=== PATIENT | male | born 1990 | race Caucasian/White ===

== ENCOUNTER 2016-08-29 14:30 | Emergency (ER) | payer OTHER ==
[2016-08-29] MEDS ORDERED: Ketorolac 60 MG/2 ML SDV IM ONE (14:57)
--- NOTE | 2016-08-29 15:33 | EDM.PDOC ---
ED HPI LOWER BACK PAIN/INJURY - General Chief Complaint: Back Pain or Injury Stated Complaint: BACK PAIN Time Seen by Provider: 08/29/16 15:17 Source of Information: Reports: Patient History Limitations: Reports: No limitations - History of Present Illness INITIAL COMMENTS - FREE TEXT/NARRATIVE: History of present illness: [25-year-old male comes in complaining of lower back pain. Patient indicates pain started a few days ago and has gotten progressively worse to the point that he had a stabbing pain in the small of his back last night that caused him to almost passed out. Patient is pacing in the room unable to stay still and subsequently seeming to be in chronic mild distress.] Review of systems: As per history of present illness and below otherwise all systems reviewed and negative. Past medical history: As per history of present illness and as reviewed below otherwise noncontributory. Surgical history: As per history of present illness and as reviewed below otherwise noncontributory. Social history: No reported history of drug or alcohol abuse. Family history: As per history of present illness and as reviewed below otherwise noncontributory. Physical exam: HEENT: Atraumatic, normocephalic, pupils reactive, negative for conjunctival pallor or scleral icterus, mucous membranes moist, throat clear, neck supple, nontender, trachea midline. Lungs: Clear to auscultation, breath sounds equal bilaterally, chest nontender. Heart: S1S2, regular, negative for clicks, rubs, or JVD. Abdomen: Soft, nondistended, nontender. Negative for masses or hepatosplenomegaly. Negative for costovertebral tenderness. Pelvis: Stable nontender. Genitourinary: Deferred. Rectal: Deferred. Extremities: Atraumatic, negative for cords or calf pain. Neurovascular unremarkable. Neuro: Awake, alert, oriented. Cranial nerves II through XII unremarkable. Cerebellum unremarkable. Motor and sensory unremarkable throughout. Exam nonfocal. Patient denies loss of bladder or bowel control is able to ambulate elevate with a guarded gait but is able to clear all the way in a cautious stilted manner Radiographics studies negative for obvious fracture or malalignment. This has been discussed with the patient in regards to a potentially being a soft tissue problem that would not appear on x-ray and needs to be followed up outside with her primary care provider who can manage referrals. Diagnostics: [X-ray of lumbar spine] Therapeutics: [Toradol 60 mg IM] Impression: [Lumbar sacral pain with radiculopathy] Plan: [Lobe with PCP as already the scheduled] Definitive disposition and diagnosis as appropriate pending reevaluation and review of above. - Related Data Allergies/ADRs: Allergies Allergy/AdvReac Type Severity Reaction Status Date / Time No Known Allergies Allergy Verified 03/02/16 11:42 Home Meds: Home Meds Multivitamin with Minerals [Multiple Vitamin] 1 tab PO DAILY 11/17/15 [History] Past Medical History - Past Health History Medical/Surgical History: Denies Medical/Surgical History Respiratory History: Reports: Asthma Other Respiratory History: Asthma as a child, no symptoms as an adult Gastrointestinal History: Reports: Other (see below) Other Gastrointestinal History: History of stomach/bowel problems since a young child, have had 2 prior dual scopes, currently some heartburn, diarrhea and at times constipation, hx: blood in stools - Infectious Disease History Infectious Disease History: Reports: Chicken pox - Past Surgical History HEENT Surgical History: Reports: Adenoidectomy, Tonsillectomy GI Surgical History: Reports: Appendectomy, Colonoscopy, EGD Social & Family History - Family History Family Medical History: Noncontributory - Tobacco Use Smoking Status *Q: Never Smoker Years of Tobacco use: 8 Packs/Tins Daily: 0.3 - Caffeine Use Caffeine Use: Reports: Coffee, Energy drinks - Recreational Drug Use Recreational Drug Use: No Drug Use in Last 12 Months: No ED ROS GENERAL - Review of Systems Review Of Systems: See Below (See history of present illness) ED EXAM,LOWER BACK PAIN/INJURY - Physical Exam Exam: See Below (See history of present illness) Course - Vital Signs Last Recorded V/S: Last Vital Signs Temp 36.6 C 08/29/16 14:42 Pulse 70 08/29/16 14:42 Resp 18 08/29/16 14:42 BP 142/88 H 08/29/16 14:42 Pulse Ox 99 08/29/16 14:42 - Orders/Labs/Meds Orders: Active Orders 24 hr Category Date Time Status Lumbar Spine 2 or 3V [CR] Stat Exams 08/29/16 14:57 Ordered Meds: Medications Discontinued Medications Generic Name Dose Route Start Last Admin Trade Name Freq PRN Reason Stop Dose Admin Ketorolac Tromethamine 60 mg 08/29/16 14:57 Toradol IM 08/29/16 14:58 ONETIME ONE Departure - Departure Time of Disposition: 15:51 Disposition: Home, Self-Care 01 Condition: good Clinical Impression: Back pain Qualifiers: Back pain location: low back pain Chronicity: acute Back pain laterality: midline Sciatica presence: with sciatica Sciatica laterality: sciatica of left side Qualified Code(s): M54.42 - Lumbago with sciatica, left side Instructions: Back Pain, Adult, [id number] Forms: ED Department Discharge Additional Instructions: The following information is given to patients seen in the emergency department who are being discharged to home. This information is to outline your options for follow-up care. We provide all patients seen in our emergency department with a follow-up referral. The need for follow-up, as well as the timing and circumstances, are variable depending upon the specifics of your emergency department visit. If you don't have a primary care physician on staff, we will provide you with a referral. We always advise you to contact your personal physician following an emergency department visit to inform them of the circumstance of the visit and for follow-up with them and/or the need for any referrals to a consulting specialist. The emergency department will also refer you to a specialist when appropriate. This referral assures that you have the opportunity for follow-up care with a specialist. All of these measure are taken in an effort to provide you with optimal care, which includes your follow-up. Under all circumstances we always encourage you to contact your private physician who remains a resource for coordinating your care. When calling for follow-up care, please make the office aware that this follow-up is from your recent emergency room visit. If for any reason you are refused follow-up, please contact the Emergency Department at and asked to speak to the emergency department charge nurse. Followup primary care provider in one to 2 days please followup with the appointment at your he has scheduled You have been provided prescriptions for a muscle relaxer as well as a pain medicine please take sparingly and only as needed Return to the ED as needed as discussed - My Orders Last 24 Hours: My Active Orders 08/29/16 14:57 Lumbar Spine 2 or 3V [CR] Stat - Assessment/Plan Last 24 Hours: My Active Orders 08/29/16 14:57 Lumbar Spine 2 or 3V [CR] Stat
[2016-08-29 16:15] VITALS: BP 142/71
--- NOTE | 2016-08-30 17:10 | CR ---
EXAM DATE: 08/29/16 PATIENT'S AGE: 25 Patient: REGINO RAMIREZ Facility: [place], [place] Site . Site : 1990 Study: XRay Spine Lumbar [id number] 3:09:57 PM Ordering Physician: Doctor Kay Final Report: INDICATION: Back pain. Comparison: None. Technique: Three view study lumbosacral spine. Findings: No evidence of fracture or dislocation. No bone or soft tissue abnormalities. No evidence of spondylolysis or spondylolisthesis. Intervertebral discs are unremarkable . Impression: Negative radiographic examination of the lumbar sacral spine. Dictated by Thor Valles MD @ Aug 29 2016 3:29PM (Electronic Signature) Report Signed by Proxy and Original Signed Document filed in the Medical Record. MTDD
== END 2016-08-29 16:15 | disposition home or self-care (01) ==
LOC: MW.ED 14:30
DX: M54.42 Lumbago with sciatica, left side (principal); Z90.49 Acquired absence of other specified parts of digestive tract; Z98.890 Other specified postprocedural states
CPT/HCPCS: 72100; 96372; 99283; J1885